=== PATIENT | male | born 1985 | race Caucasian/White ===

== ENCOUNTER 2018-10-30 20:28 | Emergency (ER) | payer MEDICAID, OTHER ==
[~2018-10-30] VITALS: Ht 177.8 cm; Wt 86.2 kg
[~2018-10-30 20:28] MED LIST: ACET-787 PO; RANI-287 PO
[2018-10-30 20:34] VITALS: BP 126/71
--- NOTE | 2018-10-30 20:35 | NUR ---
TO BED # 08 AMBULATORY
--- NOTE | 2018-10-30 20:48 | NUR ---
33 Y/O M PRESENTS W/ RT ARM REDNESS AND PAIN X 1 WEEK. +REDNESS NOTED. +CMS. PERIPHERAL PULSES PRESENT, +3. PT AAOX4, GCS 15. CAP REFILL<3.
[2018-10-30] MEDS ORDERED: LIDOCAINE 1% 500 MG/50 ML VIAL INJ SCH (20:50)
[2018-10-30] MEDS ORDERED: LIDOCAINE MPF 1% - 5 mL VIAL 5 ML ONE (21:04)
[2018-10-30 21:17] VITALS: BP 126/71
--- NOTE | 2018-10-30 21:18 | NUR ---
Patient discharged with v/s stable. Written and verbal after care instructions given and explained. Patient alert, oriented and verbalized understanding of instructions. Ambulatory with steady gait. All questions addressed prior to discharge. ID band removed. Patient advised to follow up with PMD. Rx of BACTRIM, IBUPROPHEN given. Patient educated on indication of medication including possible reaction and side effects. Opportunity to ask questions provided and answered.
[2018-10-30] MEDS ORDERED: BACITRACIN OINT 500 UNITS/GM PKT TP ONE ×2 (21:20→21:32)
== END 2018-10-30 21:18 | disposition home or self-care (01) ==
LOC: MED 20:28
DX: L02.413 Cutaneous abscess of right upper limb (principal); K21.9 Gastro-esophageal reflux disease without esophagitis; F17.210 Nicotine dependence, cigarettes, uncomplicated; F12.10 Cannabis abuse, uncomplicated; Z88.1 Allergy status to other antibiotic agents; Z88.8 Allergy status to other drugs, medicaments and biological substances; Z79.899 Other long term (current) drug therapy
CPT/HCPCS: 10060; 99283; J2001

== ENCOUNTER 2019-06-29 23:05 | Emergency (ER) | payer OTHER ==
--- NOTE | 2019-06-29 23:16 | NUR ---
PATIENT LEFT WITHOUT BEING SEEN BY DR. LAU. NO FURTHER CARE PROVIDED FOR PATIENT.
--- NOTE | 2019-06-29 23:16 | NUR ---
PATIENT CALLED FOR TRIAGE NO ANSWER. REPORTED TO ADMITTED THAT THEY WERE LEAVING AND NO LONGER WANTED TO BE SEEN.
--- NOTE | 2019-06-29 23:29 | NUR ---
PATIENT CALLED IN WAITING ROOM, NO ANSWER
== END 2019-06-29 23:16 | disposition left against medical advice (07) ==
LOC: MED 23:05
DX: L02.419 Cutaneous abscess of limb, unspecified (principal); Z53.21 Procedure and treatment not carried out due to patient leaving prior to being seen by health care provider

== ENCOUNTER 2019-07-29 22:09 | Emergency (ER) | payer OTHER ==
[~2019-07-29] VITALS: Ht 170.2 cm; Wt 93.4 kg
[2019-07-29 22:16] VITALS: BP 132/73
--- NOTE | 2019-07-29 22:24 | NUR ---
PT AMBULATED TO BED 7 WITH STEADY GAIT
--- NOTE | 2019-07-29 22:28 | NUR ---
33 Y/O MALE C/O PAINFUL LUMP BEHIND LEFT KNEE X 3 DAYS WITH PAIN 07/24. PT DENIES ANY TRAUMA AND STATES WHEM AMBULATING IT CAUSES PAIN. LUMP IS TENDER TO TOUCH AND AROUND LUMP IT IS RED, PAINFUL BUT PAIN DOES NOT RADIATE FURTHER THEN AROUND THE LUMP. DENIES N/V/D; SKIN IS PINK/WARM/DRY; AAOX4 WITH EVEN AND STEADY GAIT; PT DENIES ANY FEVER, CP, SOB, OR COUGH AT THIS TIME; VSS; PATIENT POSITIONED FOR COMFORT; HOB ELEVATED; BEDRAILS UP X1; BED DOWN AND LOCKED. PT STATES TO [facility] YESTERDAY . MEDICAL HX: PT DENIES ALLERGIES:AUGMENTIN, CODEINE PT REPORTS TODAY
--- NOTE | 2019-07-29 22:33 | NUR ---
AT BEDSIDE EXAMINING PT
[2019-07-29] MEDS ORDERED: CEPHALEXIN 500 MG CAP PO ONE (22:40)
[2019-07-29] MEDS ORDERED: LIDOCAINE 2% 1000 MG/50 ML VIAL INJ ONE (22:40)
[2019-07-29] MEDS ORDERED: SULFAMETH/TRIMETH DS 800/160MG 1 TAB PO ONE (22:40)
[2019-07-29] MEDS ORDERED: IBUPROFEN 800 MG TAB PO ONE (22:40)
--- NOTE | 2019-07-29 23:12 | NUR ---
PTS WOUND WAS COVERED WITH A NON ADHERENT GAUZE AND ROLL GAUZE TO WRAP WOUND. PTS PMSC [facility].
[2019-07-29 23:14] VITALS: BP 132/73
--- NOTE | 2019-07-29 23:14 | NUR ---
Patient discharged with v/s stable. Written and verbal after care instructions given and explained. Patient alert, oriented and verbalized understanding of instructions. Ambulatory with steady gait. All questions addressed prior to discharge. ID band removed. Patient advised to follow up with PMD. Rx of BACTRIM/KEFLEX/MOTRIN given. Patient educated on indication of medication including possible reaction and side effects. Opportunity to ask questions provided and answered.
== END 2019-07-29 23:14 | disposition home or self-care (01) ==
LOC: MED 22:09
DX: L02.416 Cutaneous abscess of left lower limb (principal); K21.9 Gastro-esophageal reflux disease without esophagitis; F17.210 Nicotine dependence, cigarettes, uncomplicated; Z88.5 Allergy status to narcotic agent; Z88.0 Allergy status to penicillin; Z91.09 Other allergy status, other than to drugs and biological substances; Z79.899 Other long term (current) drug therapy
CPT/HCPCS: 10060; 90471; 90715; 99284; J2001; 96372

== ENCOUNTER 2019-08-02 21:12 | Emergency (ER) | payer OTHER ==
[~2019-08-02] VITALS: Ht 177.8 cm; Wt 90.4 kg
[2019-08-02 21:19] VITALS: BP 138/81
--- NOTE | 2019-08-02 21:25 | NUR ---
33 Y/O MALE PRESENTS TO ER FOR WOUND CHECK. PT IS HERE FOR LEFT POSTERIOR KNEE WOUND TO BE UNPACKED, CHECKED, AND REPACKED. NO DISTRESS NOTED, R/R EQUAL, AND UNLABORED. SIDE RAIL X 1, WILL CONTINUE TO MONITOR. ALLERGY: AMOXICILLIN, CLAVULANIC ACID, CODEINE PMH: GERD
--- NOTE | 2019-08-02 21:26 | NUR ---
PT TAKEN TO BED 4
--- NOTE | 2019-08-02 21:28 | NUR ---
Dr. Diaz examining patient.
[2019-08-02 21:40] VITALS: BP 138/81
--- NOTE | 2019-08-02 21:40 | NUR ---
Patient discharged with v/s stable. Written and verbal after care instructions given and explained. Patient verbalized understanding. Ambulatory with steady gait. All questions addressed prior to discharge. Advised to follow up with PMD.
== END 2019-08-02 21:40 | disposition home or self-care (01) ==
LOC: MED 21:12
DX: L02.416 Cutaneous abscess of left lower limb (principal); K21.9 Gastro-esophageal reflux disease without esophagitis; Z88.1 Allergy status to other antibiotic agents; Z88.5 Allergy status to narcotic agent; Z88.8 Allergy status to other drugs, medicaments and biological substances; Z48.01 Encounter for change or removal of surgical wound dressing; Z79.899 Other long term (current) drug therapy
CPT/HCPCS: 99281

== ENCOUNTER 2019-09-19 20:45 | Emergency (ER) | payer OTHER ==
[~2019-09-19] VITALS: Ht 177.8 cm; Wt 88.9 kg
[2019-09-19 20:55] VITALS: BP 116/73
[2019-09-19 21:41] VITALS: BP 116/73
== END 2019-09-19 21:41 | disposition home or self-care (01) ==
LOC: MED 20:45
DX: A63.0 Anogenital (venereal) warts (principal); K21.9 Gastro-esophageal reflux disease without esophagitis; Z88.6 Allergy status to analgesic agent; Z88.1 Allergy status to other antibiotic agents; Z79.899 Other long term (current) drug therapy
CPT/HCPCS: 99283

== ENCOUNTER 2020-11-24 13:15 | Emergency (ER) | payer MEDICAID, OTHER ==
[~2020-11-24] VITALS: Ht 177.8 cm; Wt 90.7 kg
[~2020-11-24 13:15] MED LIST changes: -ACET-787 PO; +HYDR-5191 PO
[2020-11-24 13:45] VITALS: BP 144/79
--- NOTE | 2020-11-24 13:57 | NUR ---
PT AMBULATED TO BED 5
[2020-11-24] MEDS ORDERED: LIDOCAINE/EPI 1% 1:100000 20 ML VIAL INJ ONE (14:15)
--- NOTE | 2020-11-24 14:25 | NUR ---
35 MALE WITH C/O R SHOULDER PAIN, REDNESS & SWELLING. PT STATES PAIN/REDNESS STARTED X3 DAYS AGO DUE TO METH USE. PT STATED "HE INJECTED METH INTO HIS R ARM AND HIS SHOULDER SWELLED UP AND TURNED RED." PT STATED THIS HAS HAPPENED BEFORE. S/P HEROIN& METH INJECTION X 3 DAYS. PMH: DRUG ABUSE ALLERGIES: AMOXICILLIN, CLAVULANIC ACID, CODEINE
--- NOTE | 2020-11-24 14:28 | NUR ---
MD BEDSIDE WITH PT
[2020-11-24] MEDS ORDERED: HYDROcodone/APAP 10/325 MG 1 TAB TAB PO STA (14:52)
[2020-11-24] MEDS ORDERED: SULFAMETH/TRIMETH DS 800/160MG 1 TAB PO ONE (14:55)
[2020-11-24] MEDS ORDERED: cephALEXin 500 MG CAP PO ONE (14:55)
--- NOTE | 2020-11-24 15:13 | NUR ---
PT WOUND CLEANED WITH NORMAL SALINE AND DRESSED WITH 4X4 GUAZE PAD AND TAPED.
[2020-11-24] MEDS ORDERED: SULF-59 PO (15:42)
[2020-11-24] MEDS ORDERED: CEPH-588 PO (15:42)
--- NOTE | 2020-11-24 15:59 | NUR ---
Patient discharged with v/s stable. Written and verbal after care instructions given and explained. Patient alert, oriented and verbalized understanding of instructions. Ambulatory with steady gait. All questions addressed prior to discharge. ID band removed. Patient advised to follow up with PMD. Rx of CEPHALEXIN AND BACTRIM given. Patient educated on indication of medication including possible reaction and side effects. Opportunity to ask questions provided and answered.
== END 2020-11-24 15:59 | disposition home or self-care (01) ==
LOC: MED 13:15
DX: L02.413 Cutaneous abscess of right upper limb (principal); K21.9 Gastro-esophageal reflux disease without esophagitis; Z88.5 Allergy status to narcotic agent; Z88.1 Allergy status to other antibiotic agents
CPT/HCPCS: 10060; 99284; J2001